=== PATIENT | male | born 2000 | race Caucasian/White ===

== ENCOUNTER 2020-06-07 16:09 | Emergency (ER) | payer OTHER ==
[2020-06-07] MEDS ORDERED: cefTRIAXone 1 GM Vial IM ONE (17:42)
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
== END 2020-06-07 18:13 | disposition home or self-care (01) ==
LOC: FB.ED 16:09
DX: T24.231A Burn of second degree of right lower leg, initial encounter (principal); L03.115 Cellulitis of right lower limb; X16.XXXA Contact with hot heating appliances, radiators and pipes, initial encounter
CPT/HCPCS: 36415; 85025; 86140; 87070; 87077; 87186; 87205; 96372; 99283; J0696